=== PATIENT | female | born 1935 | race Caucasian/White ===

== ENCOUNTER → 2016-12-15 | Outpatient (CLI) | payer MEDICARE ==
[2016-12-15 17:01] LABS: BASOPHIL# 0.1 X10e3 (0-0.3); BASOPHIL% 0.7 % (0-2.5); DIFF IND NO; EOSINOPHIL# 0.2 X10e3 (0-0.7); EOSINOPHIL% 2.6 % (0.0-7.0); HEMATOCRIT 39.2 % (35.0-45.0); HEMOGLOBIN 12.8 gm/dL (12.0-16.0); LYMPHOCYTE# 2.3 X10e3 (1.0-3.5); MEAN CELL VOLUME 90.8 FL (83-96); MEAN CORPUSCULAR HEMOGLOBIN 29.7 PG (28-34); MEAN CORPUSCULAR HGB CONC 32.7 g/dL (30-36); MONOCYTE# 0.7 X10e3 (0-1.0); NEUTROPHIL# 4.6 X10e3 (1.5-7.1); NEUTROPHIL% 58.7 % (40-75); PLATELET COUNT 213 X10e3 (140-420); RED BLOOD COUNT 4.32 X10e (3.90-5.30); RED CELL DISTRIBUTION WIDTH 13.8 % (11.0-15.5); WHITE BLOOD COUNT 7.8 X10e3 (4.0-10.5)
[2016-12-15 17:59] LABS: CALCIUM SERUM 9.9 mg/dL (8.4-10.2); CREATININE SERUM 0.8 mg/dL (0.6-1.4); GLOM FILT RATE Estimated 70.2 mL/min (>60); POTASSIUM 4.8 mmol/L (3.5-5.1)
[2016-12-19 21:56] LABS: ANA SCREEN Negative (Negative)
== END | disposition home or self-care (01) ==
LOC: CLAB 16:28
PROVIDERS: Optometrist
DX: H40.1131 Primary open-angle glaucoma, bilateral, mild stage (principal); H20.13 Chronic iridocyclitis, bilateral; H26.493 Other secondary cataract, bilateral; Z96.1 Presence of intraocular lens
CPT/HCPCS: 36415; 80048; 82164; 85025; 85549; 85652; 86038; 86039; 86140; 86430; 86592; 86780; 86812